=== PATIENT | male | born 1965 | race African-American/Black ===

== ENCOUNTER → 2017-12-16 | Day surgery (SDC) | payer BC ==
[~2017-12-16] MED LIST: AMLODIPINE BESY10 MG PO; MIDAZOLAM HCL 2 MG/2 ML VIAL ONE; PROPOFOL IV EMULSION 10 MG/ML 20 ML VIAL ONE; TRIAMTERENE-HC1 EAC2 PO
--- NOTE | 2017-12-16 09:54 | Operative Report ---
DATE OF PROCEDURE: December 16, 2017 PROCEDURE PERFORMED: Colonoscopy. PREOPERATIVE DIAGNOSIS: Colon cancer screening. POSTOPERATIVE DIAGNOSIS: Colon cancer screening. No colon polyps founds. Internal hemorrhoids present. Using the [employer] video colonoscope, it was inserted into the patient's rectum and advanced without difficulty to the level of the cecum. Photo documentation was obtained in the cecum. The colon was studied from that level back down to the rectum. No polypoid lesions, tumor masses or inflammatory changes were encountered. Down in the rectum, we found internal hemorrhoids, grade 1-2. The colonoscope was withdrawn from the patient's rectum, and the procedure was ended. CONCLUSION: Colon cancer screening. No colon polyps found. Internal hemorrhoids present. Job#: [id number] [email or web address]
== END | disposition home or self-care (01) ==
LOC: OR 06:54
PROVIDERS: ATTEND Internal Medicine Gastroenterology
DX: Z12.11 Encounter for screening for malignant neoplasm of colon (principal); K59.00 Constipation, unspecified; K64.8 Other hemorrhoids; I10 Essential (primary) hypertension; Z01.810 Encounter for preprocedural cardiovascular examination; Z68.30 Body mass index [BMI] 30.0-30.9, adult
CPT/HCPCS: 45378; 93005; J2250